=== PATIENT | female | born 1930 | race Caucasian/White ===

== ENCOUNTER → 2016-07-13 | Outpatient (REF) | payer MEDICARE ==
[~2016-07-13] MED LIST: /AMLO25TA OR; /ESOM40CA OR; /FAMO2TA PO; /FEXO18TA OR; /PANT40TA PO; /WARF25TA OR; /WARF25TA PO; /WARF3TA OR; ACET65TA OR; AVAP150T OR; FAMO20TA2 OR; FEXOFENADINE PO; GAS-80CH OR; GLUC500T3 OR; LASI40TA PO; LEVO25TA2 OR; LOPR50TA OR; MULTIVIT OR; NIAC500T OR; NITR0.4S SL; NORCOTAB PO; OMEGA 3 OR; PERC5TAB8 OR; PRIN5TAB OR; ROSU10TA OR; SIMV20TA2 OR; SINE25TA2 OR; STOOL SOFTENER OR; STOOL SOFTENER PO; TOPR25TA OR; TYLE325T5 PO; ULTR50TA PO; WARF2TAB44 PO; [UNRECOGNIZED DRUG - OTHER] PO; furosemide PO; m; magnesium oxide OR; pradaxa PO
[2016-07-13 17:45] LABS: VITAMIN B12 LEVEL 453 PG/ML (247-911)
[2016-07-13 18:00] LABS: TOTAL PROTEIN 7.6 GM/DL (6.4-8.2)
[2016-07-16 12:58] LABS: ALBUMIN 4.28 GM/DL (3.29-5.55); ALBUMIN % 56.3 % (55.8-66.1); GAMMA GLOBULIN % 16.6 % (11.1-18.8)
== END ==
LOC: M LAB REF 16:26
DX: G62.9 Polyneuropathy, unspecified (principal)

== ENCOUNTER → 2017-01-28 | Outpatient (CLI) | payer MEDICARE ==
[~2017-01-28] MED LIST changes: +BENA25CA4 PO; +CARB25TA PO; +COUM1TAB14 PO; +DULO1CAP2 PO; +FAMO1TAB11 PO; +FURO40TA2 PO; +GABA-282; +GABA-282 PO; +LEVO75TA34 PO; +METO1TAB32 PO; +NEXI20CA PO; +SIMV20TA2 PO; +STOO100C PO; +TYLE1TAB5 PO; +TYLE500T78 PO; +VITA500046 PO; +WARF4TAB51 PO
--- NOTE | 2017-01-28 14:59 | REP ---
Three-phase radionuclide bone scan of the pelvis and hips: The vascular phase of the study is bilaterally symmetric. On the oft tissue and skeletal phases of the study, there is focal increased uptake just distal to the intertrochanteric area and proximal shaft of the left femoral stem, asymmetric compared to the right, compatible with loosening. On the lateral views, there is no evidence of uptake in the sacrum. 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 There is no increased uptake in the sacrum. The study is performed with MDP labeled 21.6 mCi of technetium 99m. Signed by Toy Simpson MD 01/28/2017 02:51 P
== END ==
LOC: M RAD 10:55
PROVIDERS: ATTEND Physician Assistant
DX: M25.552 Pain in left hip (principal); T84.031A Mechanical loosening of internal left hip prosthetic joint, initial encounter; Z96.642 Presence of left artificial hip joint; Y83.1 Surgical operation with implant of artificial internal device as the cause of abnormal reaction of the patient, or of later complication, without mention of misadventure at the time of the procedure
CPT/HCPCS: 78315; A9503

== ENCOUNTER → 2017-02-20 | Outpatient (CLI) | payer MEDICARE ==
--- NOTE | 2017-02-20 11:44 | REP ---
LEFT ANKLE SERIES: Four views. HISTORY: Left ankle injury. FINDINGS: There is anterolateral periarticular swelling. Ankle mortise is intact. There is diffuse osteopenia. No fracture is seen. There is fragmented spurring at the Achilles tendon insertion on the posterior calcaneus with thickening of the distal Achilles tendon consistent with chronic Achilles tendinosis. This is more pronounced than on the comparison radiograph of the left foot from 2005. There is plantar calcaneal spurring as well. IMPRESSION: No fracture or subluxation is seen. Anterolateral swelling. Prominent distal Achilles tendonitis tendinosis with calcification and spurring. Signed by Ace Ramirez MD 02/20/2017 01:43 P
== END ==
LOC: M LRY 11:03
PROVIDERS: ATTEND Nurse Practitioner Family
DX: S99.912A Unspecified injury of left ankle, initial encounter (principal); M76.62 Achilles tendinitis, left leg; M25.472 Effusion, left ankle; M77.32 Calcaneal spur, left foot; M85.872 Other specified disorders of bone density and structure, left ankle and foot; X58.XXXA Exposure to other specified factors, initial encounter; Y92.9 Unspecified place or not applicable; Y93.9 Activity, unspecified; Y99.9 Unspecified external cause status
CPT/HCPCS: 29515; 73610; G0463

== ENCOUNTER 2017-03-04 14:36 | Inpatient (IN) | payer MEDICARE ==
[~2017-03-04] VITALS: Ht 154.9 cm; Wt 68.5 kg
[~2017-03-04 14:36] MED LIST changes: -BENA25CA4 PO; -CARB25TA PO; -COUM1TAB14 PO; -DULO1CAP2 PO; -FAMO1TAB11 PO; -FURO40TA2 PO; -GABA-282; -GABA-282 PO; -LEVO75TA34 PO; -METO1TAB32 PO; -NEXI20CA PO; -SIMV20TA2 PO; -STOO100C PO; -TYLE1TAB5 PO; -TYLE500T78 PO; -VITA500046 PO; -WARF4TAB51 PO
[2017-03-04] MEDS ORDERED: GABA-282 (14:53)
[2017-03-04] MEDS ORDERED: NS 1,000 ML IV SCH (16:00)
--- NOTE | 2017-03-04 16:21 | REP ---
Clinical: Syncope. Comparison: 10/16/2012 . Findings: Age-related atrophy and microvascular ischemic changes are appreciated. The ventricles and sulci are symmetric. Michel-white differentiation is maintained. There is no evidence for acute intracranial hemorrhage, mass/mass effect, pathology or infarction. No extra-axial fluid collection. Calvarium is intact. Paranasal sinuses and mastoid air cells are clear. Impression: Age related atrophy and microvascular ischemic changes. No acute intracranial hemorrhage, infarction, or mass/mass effect. Signed by Raheem Dyson MD 03/04/2017 04:12 P
--- NOTE | 2017-03-04 16:22 | REP ---
Clinical: Syncope . Comparison: 11/14/2016 . Findings: The mediastinum and cardiac silhouette are stable and again demonstrate stable cardiomegaly, sternotomy and evidence of prior CABG. The lung ortiz demonstrate chronic changes without acute consolidation, effusion, or pneumothorax. Skeletal structures are intact. Impression: No acute cardiopulmonary process appreciated. Signed by Raheem Dyson MD 03/04/2017 04:13 P
[2017-03-04 16:30] LABS: BASO % 0.5 % (0.0-1.0); EOS # 0.2 K/mm3 (0.0-0.50); EOS % 2.4 % (0.0-3.0); LARGE UNSTAINED CELL # 0.2 K/mm3 (0.0-0.4); LARGE UNSTAINED CELL % 2.1 % (0.0-4.0); LYMPH # 1.1 K/mm3 (1.5-4.5); LYMPH % 11.8 % (24.0-44.0); MEAN CORPUSCULAR HEMOGLOBIN 26.5 pg (27.0-33.0); MEAN CORPUSCULAR HGB CONC 29.6 g/dl (32.0-36.5); MEAN CORPUSCULAR VOLUME 89.6 fl (80.0-96.0); MONO # 0.6 K/mm3 (0.0-0.8); MONO % 7.3 % (0.0-5.0); NEUTROPHILS # 6.2 K/mm3 (1.8-7.7); NEUTROPHILS % 75.9 % (36.0-66.0); PLATELET COUNT, AUTOMATED 343 k/mm3 (150-450); RED CELL DISTRIBUTION WIDTH 16.2 % (11.5-14.5); WHITE BLOOD COUNT 8.2 K/mm3 (4.0-10.0)
[2017-03-04 16:39] LABS: INR 2.1
[2017-03-04 17:00] LABS: ANION GAP 3 MEQ/L (8-16); BLOOD UREA NITROGEN 17 MG/DL (7-18); CARBON DIOXIDE LEVEL 38 MEQ/L (21-32); CHLORIDE LEVEL 99 MEQ/L (98-107); CREATININE FOR GFR 0.81 MG/DL (0.55-1.02); GLOMERULAR FILTRATION RATE > 60.0 (>32); GLUCOSE, FASTING 117 MG/DL (83-110); POTASSIUM SERUM 3.2 MEQ/L (3.5-5.1); SODIUM LEVEL 140 MEQ/L (136-145)
[2017-03-04] MEDS ORDERED: POTASSIUM CHLORIDE 10 MEQ SR TABLET PO ONE (17:15)
[2017-03-04] MEDS ORDERED: FUROSEMIDE 40 MG/4 ML VIAL (J1940) IV ONE (17:15)
[2017-03-04] MEDS ORDERED: ONDANSETRON 4MG/2ML VIAL (J2405) IV PRN (18:45)
[2017-03-04] MEDS ORDERED: ACETAMINOPHEN TAB 650MG DOSE (2X325MG) PO PRN (18:45)
[2017-03-04] MEDS ORDERED: DULO1CAP2 PO (18:55)
[2017-03-04] MEDS ORDERED: GABA-282 PO (18:55)
[2017-03-04] MEDS ORDERED: TYLE1TAB5 PO (18:55)
[2017-03-04] MEDS ORDERED: LEVO75TA34 PO (18:55)
[2017-03-04] MEDS ORDERED: NEXI20CA PO (18:55)
[2017-03-04] MEDS ORDERED: STOO100C PO (18:55)
[2017-03-04] MEDS ORDERED: CARB25TA PO (18:55)
[2017-03-04] MEDS ORDERED: BENA25CA4 PO (18:55)
[2017-03-04] MEDS ORDERED: WARF4TAB51 PO (18:55)
[2017-03-04] MEDS ORDERED: VITA500046 PO (18:55)
[2017-03-04] MEDS ORDERED: FURO40TA2 PO (18:55)
[2017-03-04] MEDS ORDERED: FAMO1TAB11 PO (18:55)
[2017-03-04] MEDS ORDERED: METO1TAB32 PO (18:55)
[2017-03-04] MEDS ORDERED: TYLE500T78 PO (18:55)
[2017-03-04] MEDS ORDERED: SIMV20TA2 PO (18:55)
[2017-03-04 19:21] LABS: METHADONE URINE NEGATIVE (NEGATIVE)
--- NOTE | 2017-03-04 19:35 | HPEPDOC ---
General Date of Admission 03/04/17 Primary Care Physician: Imelda Morelos Attending Physician: ROB RUDD MD Chief Complaint The patient is a 86-year-old female admitted with a reason for visit of SOB. History of Present Illness 86-year-old female with past medical history of atrial fibrillation on Coumadin , hypothyroidism, GERD, dyslipidemia, Parkinson's disease, and ? History of congestive heart failure presented to the ER with a chief complaint of increased shortness of breath and a weight gain of 10 pounds in the last 5 days. The patient states that she has been feeling increasingly short of breath at rest and on exertion, and this has been accompanied by gaining 10 pounds of weight. She denies any lower extremity swelling, PND, or orthopnea. She also denies any fever, chills, productive cough, chest pain, palpitations, abdominal pain, or any nausea/vomiting/diarrhea. In addition, the patient has noted that she has been feeling increasingly lightheaded/dizzy with episodes of syncope over the last few days as well. She denies any prodromal symptoms of chest pain , palpitations, or shortness of breath. In the ER, the patient's physical exam (bibasilar crackles on auscultation, +JVD ) is consistent with decompensated congestive heart failure. A BNP level was noted to be 1500. EKG revealed T-wave inversions in V1-V4, which were new compared to the last EKG tracing we have from 2012. Initial troponin is within normal limits. The patient will be admitted to the hospitalist service for IV diuretics and further management. Home Medications Scheduled (Tylenol Pm Extra Strength 500-25 mg) 1 Tab Tab, 2 TAB PO QHS, (Reported) Acetaminophen (Tylenol Extra Strength) 500 Mg Tab, 1,000 MG PO DAILY, (Reported) Carbidopa/Levodopa (Carbidopa/Levodopa 25-100 mg) 1 Tab Tab, 2 TAB PO BID, ( Reported) Cholecalciferol (Vitamin D) 5,000 Unit Tab, 5,000 UNIT PO QHS, (Reported) Diphenhydramine HCl (Benadryl Allergy) 25 Mg Cap, 25 MG PO QHS, (Reported) Docusate Sodium (Stool Softener) 100 Mg Cap, 100 MG PO QHS, (Reported) HOLD FOR LOOSE STOOLS Duloxetine Hcl (Duloxetine HCl) 30 Mg Cap, 30 MG PO DAILY, (Reported) Esomeprazole Magnesium Trihydr (Nexium) 20 Mg Cap, 40 MG PO DAILY, (Reported) Famotidine (Famotidine) 20 Mg Tab, 20 MG PO DAILY, (Reported) Furosemide (Furosemide) 40 Mg Tab, 40 MG PO DAILY, (Reported) Gabapentin (Gabapentin) 300 Mg Cap, 900 MG PO QHS, (Reported) Levothyroxine Sodium (Levoxyl) 75 Mcg Tab, 75 MCG PO DAILY, (Reported) Metoprolol Succinate (Metoprolol Succinate ER) 25 Mg Tab, 25 MG PO QHS, ( Reported) Simvastatin (Simvastatin) 20 Mg Tab, 20 MG PO QHS, (Reported) Warfarin Sod (Warfarin Sodium) 2 Mg Tab, 2 MG PO QHS, (Reported) Allergies Coded Allergies: Aspirin (Verified Adverse Reaction, Intermediate, CAUSES ULCERS, 09/23/12) Past Medical History Medical History As noted in HPI. Surgical History CABG 3 in 1997. Bilateral hip replacement 2012 and 2014 Family History Significant Family History: No pertinent family hx Social History * Smoker: former Smoker (smoked pack a day for 50 years, quit 20 years ago) Alcohol: Denies Drugs: denies Review of Symptoms Other systems 10 point review of systems negative unless otherwise specified in HPI. Physical Examination General Exam: Positive: Alert, Cooperative, No Acute Distress ENT Exam: Positive: Atraumatic, Mucous membr. moist/pink Neck Exam: Positive: JVD Chest Exam: Positive: Rales (bibasilar rales noted on auscultation) Heart Exam: Positive: Irregular Rhythm, Normal S1, Normal S2 Telemetry: Positive: Atrial fibrillation Abdomen Exam: Positive: Soft, Negative: Tenderness Extremity Exam: Negative: Tenderness, Swelling Psych Exam: Positive: Oriented x 3 Vital Signs Vital Signs Date Time Temp Pulse Resp B/P (MAP) Pulse Ox O2 Delivery O2 Flow Rate FiO2 03/04/17 19:02 20 177/87 (117) Room Air 03/04/17 18:56 84 97 03/04/17 14:36 98.6 2.5 Laboratory Data Labs 24H Laboratory Tests 2 03/04/17 16:19: White Blood Count 8.2, Red Blood Count 3.90L, Hemoglobin 10.3L, Hematocrit 34.9L , Mean Corpuscular Volume 89.6, Mean Corpuscular Hemoglobin 26.5L, Mean Corpuscular Hemoglobin Concent 29.6L, Red Cell Distribution Width 16.2H, Platelet Count 343, Neutrophils (%) (Auto) 75.9H, Lymphocytes (%) (Auto) 11.8L, Monocytes (%) (Auto) 7.3H, Eosinophils (%) (Auto) 2.4, Basophils (%) (Auto) 0.5 , Neutrophils # (Auto) 6.2, Lymphocytes # (Auto) 1.1L, Monocytes # (Auto) 0.6, Eosinophils # (Auto) 0.2, Basophils # (Auto) 0.0, Large Unclassified Cells % 2.1 , Large Unclassified Cells # 0.2, Prothrombin Time 24.3H, Prothromb Time International Ratio 2.10, Anion Gap 3L, Glomerular Filtration Rate > 60.0, Blood Urea Nitrogen 17, Creatinine 0.81, Sodium Level 140, Potassium Level 3.2L , Chloride Level 99, Carbon Dioxide Level 38H, Calcium Level 9.0, Total Creatine Kinase 51, Magnesium Level 2.0, Creatine Kinase MB 1.6, Creatine Kinase MB Relative Index 3.13, Troponin I 0.03, B-Type Natriuretic Peptide 1520H , Thyroid Stimulating Hormone (TSH) 1.930, Ethyl Alcohol Level < 0.003 03/04/17 18:51: Urine Appearance CLEAR, Urine Color YELLOW, Urine pH 6.0, Urine Specific [place] 1.006, Urine Protein NEGATIVE, Urine Glucose (UA) NEGATIVE, Urine Ketones NEGATIVE, Urine Urobilinogen 0.2, Urine Bilirubin NEGATIVE, Urine Leukocyte Esterase 2+H, Urine Blood NEGATIVE, Urine Nitrite NEGATIVE, Urine WBC (Auto) 17H, Urine RBC (Auto) 4H, Urine Hyaline Casts (Auto) 3, Urine Bacteria ( Auto) 1+H, Urine Squamous Epithelial Cells 0, Urine Mucus (Auto) SMALL, Urine Sperm (Auto) , Urine Amphetamines Screen NEGATIVE, Urine Benzodiazepines Screen NEGATIVE, Urine Opiates Screen NEGATIVE, Urine Methadone Screen NEGATIVE, Urine Barbiturates Screen NEGATIVE, Urine Phencyclidine Screen NEGATIVE, Urine Cocaine Metabolite Screen NEGATIVE, Urine Cannabinoids Screen NEGATIVE CBC/BMP Laboratory Tests 03/04/17 16:19 Red Blood Count 3.90 L, Mean Corpuscular Volume 89.6, Mean Corpuscular Hemoglobin 26.5 L, Mean Corpuscular Hemoglobin Concent 29.6 L, Red Cell Distribution Width 16.2 H, Neutrophils (%) (Auto) 75.9 H, Lymphocytes (%) (Auto ) 11.8 L, Monocytes (%) (Auto) 7.3 H, Eosinophils (%) (Auto) 2.4, Basophils (%) (Auto) 0.5, Neutrophils # (Auto) 6.2, Lymphocytes # (Auto) 1.1 L, Monocytes # ( Auto) 0.6, Eosinophils # (Auto) 0.2, Basophils # (Auto) 0.0, Calcium Level 9.0, Total Creatine Kinase 51 Microbiology Microbiology 03/04/17 Urine Culture, Received Pending Plan / VTE VTE Prophylaxis Ordered?: Yes Plan Plan Decompensated congestive heart failure We will admit the patient to the progressive care unit IV diuretics have been ordered, and we will titrate this dose based on blood pressure tolerability Monitor I's and O's Fluid restriction 2-D echocardiogram has been ordered to evaluate the patient's systolic and diastolic function EKG notable for T-wave inversions in V1-V4 which is changed from 2013 reading We will serially trend troponins We will continue to monitor the patient's fluid status Discussed the case with Dr. Nobles--Cardiology consulted Orthostatic Hypotension, Syncopal Episodes Possibly 2/2 underlying Cardiac Dysfunction--2D ECHO ordered Also may be attributable to the patient's underlying Parkinson's disease, autonomic neuropathy We will monitor the patient on telemetry Atrial Fibrillation, stable HR controlled--continue metoprolol INR therapeutic Cont coumadin Hypothyroidism Continue levothyroxine GERD Continue Pepcid, PPI Dyslipidemia Continue statin Parkinson's disease Continue carbidopa/levodopa Anxiety/depression Continue duloxetine Peripheral neuropathy Continue gabapentin, duloxetine DVT prophylaxis Already on Coumadin The patient will be admitted to the service of Dr. Rudd, who will begin to follow the patient on 03/05/17 at 7 AM. ANDERSON GARCIA MD Mar 04, 2017 19:35
[2017-03-04] MEDS ORDERED: METOPROLOL SUCC *XL* 25MG TAB (TopROL *XL*) PO SCH (21:00)
[2017-03-04 21:37] VITALS: BP 160/88
[2017-03-04] MEDS: WARFARIN SOD 2 MG TAB PO SCH (21:50)
[2017-03-04] MEDS: DOCUSATE SODIUM 100 MG CAP PO SCH (21:50)
[2017-03-04] MEDS: diphenhydrAMINE 25 MG CAP PO SCH (21:50)
[2017-03-04 21:51] VITALS: BP 163/74
[2017-03-04] MEDS: SIMVASTATIN 20 MG TAB PO SCH (21:51)
[2017-03-04] MEDS: VITAMIN D 1,000 INTERNATIONAL UNITS TABLET PO SCH (21:51)
[2017-03-04] MEDS: GABAPENTIN 300 MG CAP PO SCH (21:51)
[2017-03-04] MEDS: SINEMET 25-100 MG TAB PO SCH (21:51)
[2017-03-05 00:43] LABS: ANION GAP 4 MEQ/L (8-16); BLOOD UREA NITROGEN 16 MG/DL (7-18); CALCIUM LEVEL 8.7 MG/DL (8.8-10.2); CARBON DIOXIDE LEVEL 37 MEQ/L (21-32); CHLORIDE LEVEL 100 MEQ/L (98-107); CREATININE FOR GFR 0.86 MG/DL (0.55-1.02); GLOMERULAR FILTRATION RATE > 60.0 (>32); GLUCOSE, FASTING 121 MG/DL (83-110); POTASSIUM SERUM 3.3 MEQ/L (3.5-5.1); SODIUM LEVEL 141 MEQ/L (136-145)
[2017-03-05] MEDS ORDERED: POTASSIUM CHLORIDE 10 MEQ SR TABLET PO ONE ×2 (01:15→08:00)
[2017-03-05 03:18] VITALS: BP 119/65
[2017-03-05] MEDS: LEVOTHYROXINE 75MCG TABLET (0.075MG) PO SCH (05:20)
[2017-03-05 05:34] LABS: MEAN CORPUSCULAR HEMOGLOBIN 26.3 pg (27.0-33.0); MEAN CORPUSCULAR HGB CONC 29.5 g/dl (32.0-36.5); RED CELL DISTRIBUTION WIDTH 16.2 % (11.5-14.5); WHITE BLOOD COUNT 7.7 K/mm3 (4.0-10.0)
[2017-03-05 05:53] LABS: ALBUMIN 3.1 GM/DL (3.2-5.2); ALBUMIN/GLOBULIN RATIO 0.79 (1.00-1.93); ALKALINE PHOSPHATASE 104 U/L (45-117); ALT/SGPT 10 U/L (12-78); ANION GAP 4 MEQ/L (8-16); AST/SGOT 19 U/L (15-37); BLOOD UREA NITROGEN 16 MG/DL (7-18); CALCIUM LEVEL 9.1 MG/DL (8.8-10.2); CARBON DIOXIDE LEVEL 37 MEQ/L (21-32); CHLORIDE LEVEL 100 MEQ/L (98-107); GLOMERULAR FILTRATION RATE > 60.0 (>32); GLUCOSE, FASTING 113 MG/DL (83-110); MAGNESIUM LEVEL 1.8 MG/DL (1.8-2.4); POTASSIUM SERUM 3.7 MEQ/L (3.5-5.1); SODIUM LEVEL 141 MEQ/L (136-145)
--- NOTE | 2017-03-05 06:01 | ECGEPIP ---
Stationary ECG Study [facility] - ED Test Date: 2017-03-04 Pat Name: TAMI PERERA Department: Room: [place] [address] Gender: F Crane Hooker: rajan : 1930 Requested By: AUGUSTO CANTU Order Number: [id number] Reading MD: Robert Lehman Measurements Intervals [place] Rate: 79 P: IN: 0 QRS: 11 QRSD: 97 T: -51 QT: 400 QTc: 459 Interpretive Statements ATRIAL FIBRILLATION ST DEVIATION AND MODERATE T-WAVE ABNORMALITY, CONSIDER ANTERIOR ISCHEMIA Electronically Signed On 03-05-2017 6:00:43 EDT by Robert Lehman
[2017-03-05 08:56] VITALS: BP_SYST 136; BP_SYST 143; BP_DIAS 71; BP_DIAS 73; BP_DIAS 77
[2017-03-05] MEDS: FAMOTIDINE 20 MG TAB PO SCH (09:14)
[2017-03-05] MEDS: PANTOPRAZOLE 40MG TAB (PROTONIX) PO SCH (09:14)
[2017-03-05] MEDS: SINEMET 25-100 MG TAB PO SCH ×2 (09:14→21:05)
[2017-03-05] MEDS: DULoxetine 30 MG CAP (CYMBALTA) PO SCH (09:14)
--- NOTE | 2017-03-05 09:14 | ECGEPIP ---
Stationary ECG Study [facility] Test Date: 2017-03-05 Pat Name: TAMI PERERA Department: Room: [place] [address] Gender: F Dialysis Tech: : 1930 Requested By: BENJA GRIMES Order Number: [id number] Reading MD: Kei Arteaga Measurements Intervals [place] Rate: 78 P: IN: 0 QRS: 28 QRSD: 83 T: -53 QT: 406 QTc: 462 Interpretive Statements ATRIAL FIBRILLATION solitary ventricular beat borderline prolonged QTc POSSIBLE RIGHT VENTRICULAR CONDUCTION DELAY NONSPECIFIC ST & T-WAVE ABNORMALITY Similar to tracing done 03-04-17 Electronically Signed On 03-05-2017 9:13:49 EDT by Kei Arteaga
[2017-03-05] MEDS: FUROSEMIDE 40 MG/4 ML VIAL (J1940) IV SCH ×2 (09:15→16:30)
[2017-03-05 09:45] LABS: INR 2.06
[2017-03-05 12:00] VITALS: BP 122/60
--- NOTE | 2017-03-05 15:47 | IPNPDOC ---
Text Note Date of Service The patient was seen on 03/05/17. NOTE Subjective: Patient is an 86 year old female with a PMHx of Atrial fibrillation ( on coumadin), Hypothyroidism, DLP, Possible Parkinson's disease / RLS, ?CHF, and GERD who presented to the ER with complains of shortness of breath and increasing weight of 10 lbs in 5 days. On arrival to the ER, patient was found to have crackles on lung auscultation and JVD consistent with CHF exacerbation, as well as an elevated BNP of 1500s Patient was seen and examined at the bedside. She notes mild improvement in her breathing. Objective: Vitals (See below) General: Lying in bed, no acute distress, comfortable, AAOx3 HEENT: NC, AT CVS: IrIr, +S1S2 Lungs: Fair air entry b/l, mild crackles bilaterally Abdomen: Soft, ND, NT Extremities: +- Edema, - Calf tenderness Assessment and plan: Acute decompensated CHF - Presented with worsening shortness of breath - Physical reveals some signs of fluid overload - Elevated BNP - CXR 03/04: No acute cardiopulmonary process appreciated - ECHO pending - c/w Furosemide 40 IV BID - c/w Strict ins/outs, daily weights, head of bed elevation EKG changes, possible ischemia - no complaints of chest pain - T-wave inversions in leads V1-V4 - Troponin x3 sets negative - Follows with Dr. Nobles Bradycardia - epiosdoes of bradycardia at night with some symptoms (ie. Presyncope) - c/w telemetry monitoring - BB continued for atrial fibrillation, will continue to evaluate for bradycardia Orthostatic hypotension, possibly 2/2 autonomic dysfunction 2/2 Parkinson's disease - c/w orthostatic vital sign checks Atrial fibrillation - INR therapeutic, 2.06 - rate controlled with metoprolol - c/w Coumadin for anticoagulation Hypothyroidism - c/w Levothyroxine GERD - c/w Protonix and Famotidine DLP - c/w Simvastatin Parkinson's disease - Patient notes that she does not have a history of Parkinson's - Leveopda / Carbidopa continued for RLS - c/w Levodopa / Carbidopa Anxiety / Depression - c/w Duloxetine Peripheral neuropathy - c/w Gabapentin DVT prophylaxis - c/w Coumadin VS,Fishbone, I+O VS, Fishbone, I+O Laboratory Tests 03/04/17 16:19 Red Blood Count 3.90 L, Mean Corpuscular Volume 89.6, Mean Corpuscular Hemoglobin 26.5 L, Mean Corpuscular Hemoglobin Concent 29.6 L, Red Cell Distribution Width 16.2 H, Neutrophils (%) (Auto) 75.9 H, Lymphocytes (%) (Auto ) 11.8 L, Monocytes (%) (Auto) 7.3 H, Eosinophils (%) (Auto) 2.4, Basophils (%) (Auto) 0.5, Neutrophils # (Auto) 6.2, Lymphocytes # (Auto) 1.1 L, Monocytes # ( Auto) 0.6, Eosinophils # (Auto) 0.2, Basophils # (Auto) 0.0, Calcium Level 9.0, Total Creatine Kinase 51 03/05/17 00:09 Calcium Level 8.7 L, Total Creatine Kinase 49 03/05/17 05:15 Red Blood Count 3.82 L, Mean Corpuscular Volume 89.0, Mean Corpuscular Hemoglobin 26.3 L, Mean Corpuscular Hemoglobin Concent 29.5 L, Red Cell Distribution Width 16.2 H, Calcium Level 9.1, Aspartate Amino Transf (AST/SGOT) 19, Alanine Aminotransferase (ALT/SGPT) 10 L, Alkaline Phosphatase 104, Total Bilirubin 1.0, Total Protein 7.0, Albumin 3.1 L Vital Signs Date Time Temp Pulse Resp B/P (MAP) Pulse Ox O2 Delivery O2 Flow Rate FiO2 03/05/17 12:00 98.2 78 18 122/60 (80) 95 Nasal Cannula 3.0 I&O- Last 24 Hours up to 6 AM 03/05/17 06:00 Intake Total 650 ml Output Total 800 ml Balance -150 ml ROB LEDESMA MD Mar 05, 2017 15:47
[2017-03-05 16:00] VITALS: BP_SYST 119; BP_SYST 127; BP_SYST 138; BP_DIAS 61; BP_DIAS 73; BP_DIAS 88
--- NOTE | 2017-03-05 19:00 | CR ---
DATE OF CONSULTATION: 03/05/2017 REFERRING PHYSICIAN: Dr. Rudd INDICATION: Syncope and congestive heart failure. HISTORY OF PRESENT ILLNESS: Mrs. Vargas is previously unknown to me. She is a very pleasant, actually delightful, 86-year-old female who has a remote history of coronary artery bypass surgery in 1997. She remains remarkably active for her age in spite of her advanced age, chronic atrial fibrillation and coronary artery disease. She said that for the most part she is doing well with only mild exertional dyspnea until last approximately 2-3 weeks when she started have episodes of dizziness and near / syncope. She reports 5-6 episodes when she actually fell to the ground. It appears that some of them were actually just tripping but on few occasions she had typical warning symptoms with dizziness and nausea and diaphoresis and then briefly lost consciousness. Every single episode occurred shortly after she stood up and sometimes she made few steps. The symptoms are completely new to her. She believes that they were quite aggravated by her being started on metoprolol by her primary care physician, she believes approximately 4 weeks ago and she actually discontinued the medication on her own approximately a week ago. In spite of which she had yet another episode of near syncope. She also reports that lately she has been more short of breath than usual but does not think that it was dramatic. She denies any chest discomfort as such. PAST MEDICAL HISTORY: 1. Coronary artery disease as above. She had a bypass surgery in 1997. She had a nuclear stress test in our office in 2013 that demonstrated normal perfusion and normal left ventricular systolic function. 2. Chronic atrial fibrillation that has been managed by primary care physician. She has been spontaneously rate controlled and anticoagulated. 3. History of hypertension. 4. Dyslipidemia. 5. Chronic pain. 6. Hypothyroidism. 7. History of peptic ulcer disease. 8. History of restless leg syndrome for which she was prescribed Sinemet she believes several months ago. SURGICAL HISTORY: Positive for CABG and bilateral hip replacements. OUTPATIENT MEDICATIONS: Sinemet 2 tablets twice a day, vitamin D, Colace 100 at night, duloxetine 30 a day, Nexium 40 a day, famotidine 20 a day, furosemide 40 a day, gabapentin 300 nightly, levothyroxine 75 a day, metoprolol succinate 25 a day was discontinued about 1 week prior to admission, simvastatin and warfarin. She reports intolerance of aspirin. In the past she had peptic ulcer disease, believed to be related. FAMILY HISTORY: No longer significant. SOCIAL HISTORY: The patient is a . She used to smoke but quit many years ago. She lives on her own but her son lives just next door and she see him and his family of virtually every day. She does not drink alcohol. On the review of systems she denies any recent fever, chills, nausea or vomiting or diarrhea. She has had no history of CVA. No recent chest discomfort. No sensation of palpitations. No PND, orthopnea. No abdominal pain. No peripheral edema other than mild edema of lately. PHYSICAL EXAMINATION: Mrs. Vargas is an 86-year-old female that is comfortable. She lays completely in horizontal position. Blood pressure 120/60, heart rate has been mostly 70s and 80s atrial fibrillation. She is afebrile. Saturation is in mid 90s on 3 liters oxygen by nasal cannula. She had several sets of orthostatic measurements that have been negative. Weight is documented as 72.3 kg. Her JVP is about 5-6 cm. Lungs reveal fine end inspiratory crackles bilaterally. I do not appreciate any dullness to percussion. Heart: Exam reveals irregularly irregular rhythm. I would do not appreciate fabien gallop, murmur or rub. Abdomen is mildly obese but soft and nontender. No hepatosplenomegaly is appreciated. There is trace peripheral edema. Peripheral pulses are palpable. Neurologically she is alert and oriented and appropriate. Surprisingly sharp for her age. LABORATORY: Basic metabolic panel this morning is normal, liver function tests are also normal, three sets of cardiac enzymes have been normal. Her admission BNP is elevated 15 20, albumin 3.0 and INR 2.0. Urine tox screen has been negative. Chest x-ray reveals cardiomegaly, prior sternotomy, and aortic valve replacement and possibly small pleural effusion. The CT of the head was interpreted as corresponding age-related atrophy but no hemorrhage and no obvious stroke. Electrocardiogram reveals presence of atrial fibrillation with controlled rate and subtle precordial T-wave inversions from V1 to V6 also shallow T-wave inversion inferiorly. These findings are rather nonspecific. An echocardiogram is pending. ASSESSMENT/PLAN: Mrs. Vargas is an 86-year-old delightful female who has a history of ischemic heart disease with remote history of bypass surgery and presents with several near and syncopal events. Based on the description it sounds decidedly orthostatic but her orthostatic vital signs have been negative. So far the monitoring on telemetry demonstrates only rate-controlled atrial fibrillation. I suspect that the metoprolol that was recently discontinued was probably contributing. I also suspect that some of her additional medications that are centrally active may be contributing to contributing to her symptomatology. I would have a low threshold to discontinue the Sinemet and possibly Cymbalta and gabapentin depending on her clinical condition. Nevertheless, I would recommend to continue monitoring the patient on telemetry for at least a total of 72 hours to make sure that she does not have any luz arrhythmias. Last night she had one episode of near syncope walking to the bathroom and there was a drop in her heart rate but only to 50s which is unlikely to have been a culprit. The second issue is that of congestive heart failure. She is clearly volume overloaded as evidenced by high BNP. She has nonspecific repolarization abnormalities on EKG. The echocardiogram was already requested. I agree with ongoing diuresis. Otherwise she has been chronically anticoagulated, which should be continued. She is on lipid lowering medications. I will keep following the patient with you. CAREY
[2017-03-05 20:00] VITALS: BP 126/60
[2017-03-05] MEDS: GABAPENTIN 300 MG CAP PO SCH (21:04)
[2017-03-05] MEDS: WARFARIN SOD 2 MG TAB PO SCH (21:04)
[2017-03-05] MEDS: diphenhydrAMINE 25 MG CAP PO SCH (21:04)
[2017-03-05] MEDS: VITAMIN D 1,000 INTERNATIONAL UNITS TABLET PO SCH (21:05)
[2017-03-05] MEDS: SIMVASTATIN 20 MG TAB PO SCH (21:05)
[2017-03-05] MEDS: DOCUSATE SODIUM 100 MG CAP PO SCH (21:08)
[2017-03-06 04:00] VITALS: BP_SYST 128; BP_SYST 133; BP_SYST 135; BP_DIAS 60; BP_DIAS 65; BP_DIAS 73
[2017-03-06] MEDS: LEVOTHYROXINE 75MCG TABLET (0.075MG) PO SCH (05:16)
[2017-03-06 05:52] LABS: INR 1.83; MEAN CORPUSCULAR HEMOGLOBIN 26.6 pg (27.0-33.0); MEAN CORPUSCULAR VOLUME 88.6 fl (80.0-96.0); RED CELL DISTRIBUTION WIDTH 16.4 % (11.5-14.5); WHITE BLOOD COUNT 7.6 K/mm3 (4.0-10.0)
[2017-03-06 06:06] LABS: ALBUMIN 3.1 GM/DL (3.2-5.2); ALBUMIN/GLOBULIN RATIO 0.74 (1.00-1.93); ALKALINE PHOSPHATASE 119 U/L (45-117); ALT/SGPT 9 U/L (12-78); ANION GAP 7 MEQ/L (8-16); AST/SGOT 18 U/L (15-37); BILIRUBIN,TOTAL 0.9 MG/DL (0.2-1.0); BLOOD UREA NITROGEN 21 MG/DL (7-18); CALCIUM LEVEL 9.7 MG/DL (8.8-10.2); CARBON DIOXIDE LEVEL 36 MEQ/L (21-32); CHLORIDE LEVEL 100 MEQ/L (98-107); CREATININE FOR GFR 0.68 MG/DL (0.55-1.02); GLOMERULAR FILTRATION RATE > 60.0 (>32); GLUCOSE, FASTING 94 MG/DL (83-110); MAGNESIUM LEVEL 1.8 MG/DL (1.8-2.4); POTASSIUM SERUM 3.5 MEQ/L (3.5-5.1); SODIUM LEVEL 143 MEQ/L (136-145); TOTAL PROTEIN 7.3 GM/DL (6.4-8.2)
[2017-03-06 08:00] VITALS: BP 163/90
--- NOTE | 2017-03-06 08:18 | IPN ---
DATE: 03/06/2017 Mrs. Vargas had relatively uneventful day yesterday. She did not have any near/syncopal events. But she was not able to ambulate very well due to weakness. She still tells me that she was feeling somewhat dizzy during the ambulation. Denies significant dyspnea. Again slept completely flat. Did not have any paroxysmal nocturnal dyspnea (PND). Denies any chest pain. Vital signs: Blood pressure 135/60. Orthostatics signs were negative. Heart rate is mostly in 80s and 90s, atrial fibrillation. She is afebrile. Saturation 93% on 3 liters of oxygen by nasal cannula. Fluid balance yesterday was about 150 negative, very slightly. Weight is documented 70.7. She is alert and oriented and appropriate. Her jugular venous pulse (JVP) is not markedly elevated, only maybe 2 or 3 cm above clavicle. Lungs still reveals somewhat diminished breath sounds over bases and occasional crackle. Heart exam irregularly irregular rhythm. No gallop is noted. Abdomen is soft. There is no edema. Neurologically, she is intact. Laboratory monsalve: Basic metabolic panel is normal. Normal liver function tests. Magnesium is 1.8. CBC: Hemoglobin 10, hematocrit 34.4, platelet count is 325. INR is 1.8 ASSESSMENT: 86-year-old female who has a longstanding history of atrial fibrillation with controlled rate who presented with several near syncopal events. By a history it sounds orthostatic, but so far her orthostatic signs have been negative. It is possible that the beta-yazmin that she was on and discontinued shortly prior to admission may have played some etiologic roll. Nevertheless, so far, we have not been able to demonstrate any arrhythmias to explain her symptoms. I still would advocate to discontinue some more centrally acting medications if only possible. Otherwise, the management of heart failure is unchanged. She seems to be reasonably improved and I am still waiting for the result of the echocardiogram that was performed last night.
[2017-03-06] MEDS: FUROSEMIDE 40 MG/4 ML VIAL (J1940) IV SCH ×2 (08:20→16:07)
[2017-03-06] MEDS: PANTOPRAZOLE 40MG TAB (PROTONIX) PO SCH (08:20)
[2017-03-06] MEDS: SINEMET 25-100 MG TAB PO SCH ×2 (08:20→20:26)
[2017-03-06] MEDS: FAMOTIDINE 20 MG TAB PO SCH (08:20)
[2017-03-06] MEDS: DULoxetine 30 MG CAP (CYMBALTA) PO SCH (08:20)
--- NOTE | 2017-03-06 08:48 | ECHO ---
DATE OF PROCEDURE: 03/05/2017 REFERRING PHYSICIAN: Dr. Laguna and Dr. Rudd. INDICATION: Congestive heart failure. HEIGHT: 155 cm. WEIGHT: 72 kg. DIMENSIONS: IVS: 1.2 LV: 4.5 LVPW: 1.0 LA: 4.2 Aorta: 3.2 FINDINGS: Study is of acceptable technical quality. The patient is in atrial fibrillation with controlled rate. Left ventricle is of normal size and normal contractility. There is a septal wall motion abnormality consistent with right ventricle volume and pressure overload. I do estimate overall ejection fraction (EF) around 60%. Right ventricle is severely dilated and hypokinetic. Both atria are severely enlarged, right more than left. Aortic valve is sclerotic. It has three cusps and grossly preserved mobility. There are also degenerative abnormalities of mitral valve with mitral annular calcifications. Tricuspid valve appears normal. Pulmonic valve was not visualized. No pericardial effusion is noted. Inferior vena cava is dilated and has no appreciable collapse with respiration indicative of likely very high central venous pressure. Aortic root is normal. Aortic arch and abdominal aorta were not well seen. Doppler interrogation reveals no significant aortic disease. There is mild mitral insufficiency and probably moderate tricuspid insufficiency. Calculated pulmonary artery pressure is at least in low 70s, which would correspond to severe pulmonary hypertension. Evaluation of diastolic function is inconclusive due to underlying atrial fibrillation but there is very brief deceleration time on mitral inflow indicative of likely very high LVEDP. CONCLUSIONS: 1. Study is of acceptable technical quality. 2. Normal LV size with preserved LV systolic function and likely advanced diastolic dysfunction. 3. Dilated hypokinetic right ventricle. 4. Severe biatrial enlargement. 5. Severe pulmonary hypertension. 6. Very high central venous pressure. 7. Moderate tricuspid insufficiency. COMMENT: Subacute bacterial endocarditis (SBE) prophylaxis is not recommended. Study is most consistent with likely diastolic congestive heart failure and secondary pulmonary hypertension.
[2017-03-06 12:00] VITALS: BP_SYST 117; BP_SYST 123; BP_SYST 131; BP_DIAS 56; BP_DIAS 67; BP_DIAS 74
--- NOTE | 2017-03-06 13:50 | IPNPDOC ---
Text Note Date of Service The patient was seen on 03/06/17. NOTE Subjective: Patient is an 86 year old female with a PMHx of Atrial fibrillation ( on coumadin), Hypothyroidism, DLP, Possible Parkinson's disease / RLS, ?CHF, and GERD who presented to the ER with complains of shortness of breath and increasing weight of 10 lbs in 5 days. On arrival to the ER, patient was found to have crackles on lung auscultation and JVD consistent with CHF exacerbation, as well as an elevated BNP of 1500s Patient was seen and examined at the bedside. She notes that her breathing is doing slightly better than yesterday. She denies any other complaints. She has been noted to have an episode of bradycardia and had near syncope 1 night prior. Objective: Vitals (See below) General: Lying in bed, no acute distress, comfortable, AAOx3 HEENT: NC, AT CVS: IrIr, +S1S2 Lungs: Fair air entry b/l, mild crackles bilaterally Abdomen: Soft, ND, NT Extremities: +- Edema, - Calf tenderness Assessment and plan: Acute decompensated CHF - Presented with worsening shortness of breath - Physical reveals some signs of fluid overload - Elevated BNP - CXR 03/04: No acute cardiopulmonary process appreciated - ECHO complete; report pending - c/w Furosemide 40 IV BID - c/w Strict ins/outs, daily weights, head of bed elevation EKG changes, possible ischemia - no complaints of chest pain - T-wave inversions in leads V1-V4 - Troponin x3 sets negative - Follows with Dr. Nobles Bradycardia - episodes of bradycardia at night with some symptoms (ie. Presyncope) - c/w telemetry monitoring - BB continued for atrial fibrillation, will continue to evaluate for bradycardia Orthostatic hypotension, possibly 2/2 autonomic dysfunction 2/2 Parkinson's disease, possibly 2/2 medications - Patient denies the history of Parkinson's, reports medications was started for RLS - Will decrease dose of carbidopa / levodopa - c/w orthostatic vital sign checks Atrial fibrillation - INR therapeutic, 1.83 - rate controlled with metoprolol - c/w Coumadin for anticoagulation, will increase dose Hypothyroidism - c/w Levothyroxine GERD - c/w Protonix and Famotidine DLP - c/w Simvastatin Parkinson's disease - Patient notes that she does not have a history of Parkinson's - Leveopda / Carbidopa continued for possible RLS - Reduced dose of Levodopa / Carbidopa Anxiety / Depression - c/w Duloxetine Peripheral neuropathy - Will reduced dose of Gabapentin DVT prophylaxis - c/w Coumadin VS,Fishbone, I+O VS, Fishbone, I+O Laboratory Tests 03/06/17 05:28 Red Blood Count 3.88 L, Mean Corpuscular Volume 88.6, Mean Corpuscular Hemoglobin 26.6 L, Mean Corpuscular Hemoglobin Concent 30.0 L, Red Cell Distribution Width 16.4 H, Calcium Level 9.7, Aspartate Amino Transf (AST/SGOT) 18, Alanine Aminotransferase (ALT/SGPT) 9 L, Alkaline Phosphatase 119 H, Total Bilirubin 0.9, Total Protein 7.3, Albumin 3.1 L Vital Signs Date Time Temp Pulse Resp B/P (MAP) Pulse Ox O2 Delivery O2 Flow Rate FiO2 03/06/17 12:02 Nasal Cannula 3.0 03/06/17 12:00 90 131/67 (88) 89 117/74 (88) 92 123/56 (78) 03/06/17 12:00 98.5 18 96 I&O- Last 24 Hours up to 6 AM 03/06/17 06:00 Intake Total 1580 ml Output Total 2325 ml Balance -745 ml ROB LEDESMA MD Mar 06, 2017 13:50
[2017-03-06 16:00] VITALS: BP 130/62
[2017-03-06 20:00] VITALS: BP_SYST 107; BP_SYST 113; BP_SYST 117; BP_DIAS 53; BP_DIAS 55; BP_DIAS 57
[2017-03-06] MEDS: DOCUSATE SODIUM 100 MG CAP PO SCH (20:24)
[2017-03-06] MEDS: WARFARIN SOD 3 MG TAB PO SCH (20:25)
[2017-03-06] MEDS: GABAPENTIN 300 MG CAP PO SCH (20:25)
[2017-03-06] MEDS: SIMVASTATIN 20 MG TAB PO SCH (20:28)
[2017-03-06] MEDS: VITAMIN D 1,000 INTERNATIONAL UNITS TABLET PO SCH (20:28)
[2017-03-07] VITALS: BP 101/57
[2017-03-07 04:00] VITALS: BP_SYST 103; BP_SYST 108; BP_SYST 127; BP_DIAS 60; BP_DIAS 68
[2017-03-07 05:30] LABS: MEAN CORPUSCULAR HEMOGLOBIN 26.9 pg (27.0-33.0); MEAN CORPUSCULAR HGB CONC 30.8 g/dl (32.0-36.5); MEAN CORPUSCULAR VOLUME 87.3 fl (80.0-96.0); WHITE BLOOD COUNT 7.9 K/mm3 (4.0-10.0)
[2017-03-07 05:37] LABS: INR 1.74
[2017-03-07 05:50] LABS: ALBUMIN/GLOBULIN RATIO 0.75 (1.00-1.93); ALKALINE PHOSPHATASE 131 U/L (45-117); ALT/SGPT 10 U/L (12-78); ANION GAP 4 MEQ/L (8-16); AST/SGOT 18 U/L (15-37); BILIRUBIN,TOTAL 0.9 MG/DL (0.2-1.0); BLOOD UREA NITROGEN 22 MG/DL (7-18); CALCIUM LEVEL 9.4 MG/DL (8.8-10.2); CARBON DIOXIDE LEVEL 41 MEQ/L (21-32); CHLORIDE LEVEL 96 MEQ/L (98-107); CREATININE FOR GFR 0.76 MG/DL (0.55-1.02); GLOMERULAR FILTRATION RATE > 60.0 (>32); GLUCOSE, FASTING 104 MG/DL (83-110); MAGNESIUM LEVEL 1.8 MG/DL (1.8-2.4); SODIUM LEVEL 141 MEQ/L (136-145)
[2017-03-07] MEDS: LEVOTHYROXINE 75MCG TABLET (0.075MG) PO SCH (06:21)
[2017-03-07] MEDS ORDERED: POTASSIUM CHLORIDE 10 MEQ SR TABLET PO ONE ×2 (08:00→12:00)
[2017-03-07 08:16] VITALS: BP 147/90
[2017-03-07] MEDS: DULoxetine 30 MG CAP (CYMBALTA) PO SCH (08:58)
[2017-03-07] MEDS: SPIRONOLACTONE 25 MG TAB PO SCH (08:58)
[2017-03-07] MEDS: PANTOPRAZOLE 40MG TAB (PROTONIX) PO SCH (08:58)
[2017-03-07] MEDS: FAMOTIDINE 20 MG TAB PO SCH (08:58)
[2017-03-07] MEDS: SINEMET 25-100 MG TAB PO SCH ×2 (08:58→20:54)
[2017-03-07] MEDS: FUROSEMIDE 40 MG/4 ML VIAL (J1940) IV SCH ×2 (08:58→17:08)
--- NOTE | 2017-03-07 09:06 | IPN ---
DATE: 03/07/2017 Mrs. Vargas appears approximately the same. She is comfortable at rest but gets really dizzy and lightheaded with ambulation. She apparently yesterday tried to walk with a physical therapy again and again had an almost near syncopal event. She was on telemetry, there was no arrhythmia during the time. But today I learned new information that I did not appreciate previously. She says that before she almost passes out, she is absolutely breathless and gasping for air. She does report that she has had dyspnea for years. Has been on nocturnal oxygen for at least 2 or 3 years and on continuous oxygen for several months. She apparently in the past, had pulmonary evaluation but she is not familiar with the results. She also remembers that Dr. Helms asked her to have evaluation for sleep apnea, which she refused VITAL SIGNS: Blood pressure 147/90, heart rate has been in 80s and 90s. She is afebrile. Saturation 93% on 3 liters. Fluid balance yesterday was about 1300 negative but weight is not appreciably changed at 70.4. Her jugular venous pulse still high. Lungs are relatively clear, though. Occasional crackle and wheezes noted. Heart Exam: Irregularly irregular rhythm. I do not appreciate any gallop. Abdomen is soft, nontender. There is no peripheral edema. Peripheral pulses are palpable bilaterally. Neurologically, besides weakness. She is intact. LABORATORY: Basic metabolic panel: Potassium is 3.0, BUN 22, creatinine 0.7, glucose 104, albumin is 3.0. CBC hemoglobin 10.4, hematocrit 33, platelet count 346,000 ASSESSMENT/PLAN: Mrs. Vargas is an 86-year-old female who has a remote history of bypass surgery who came to hospital because of several near syncopal events and one probably true syncopal event. I initially was suspicious that this represents orthostatic hypotension, but her orthostatic signs have been mostly negative. Today, I learned another piece of information that I missed previously and that is that the patient admits that before she loses consciousness, she is extremely short of breath. It could be that in the setting of severe pulmonary hypertension, she just has a limited cardiac output and is intolerant of exertion. As far as the etiology of pulmonary hypertension is concerned, she has several potential reasons. She has smoked at least 50 years at least a pack a day so she probably has some underlying COPD. She also was recommended to undergo evaluation for sleep apnea at least a couple years ago, she believes, which she refused. So that could be a player as well. Finally I do believe that there is some component of left-sided congestive heart failure even though her left ventricular systolic function is preserved. Her BNP was very high, which is atypical for right-sided heart failure. Consequently, I will attempt to accomplish more vigorous diuresis, even though I do not appreciate much signs of right-sided fluid retention. If she does not improve though I am afraid that my further options are rather limited. I discussed this with Dr. Rudd. CAREY
--- NOTE | 2017-03-07 11:50 | IPNPDOC ---
Text Note Date of Service The patient was seen on 03/07/17. NOTE Subjective: Patient is an 86 year old female with a PMHx of Atrial fibrillation ( on coumadin), Hypothyroidism, DLP, Possible Parkinson's disease / RLS, ?CHF, and GERD who presented to the ER with complains of shortness of breath and increasing weight of 10 lbs in 5 days. On arrival to the ER, patient was found to have crackles on lung auscultation and JVD consistent with CHF exacerbation, as well as an elevated BNP of 1500s Patient was seen and examined at the bedside. She notes that her breathing is the same as yesterday. She did have an episode where she had a near syncopal event yesterday and was very SOB prior to this. Currently she denies any problems. Objective: Vitals (See below) General: Lying in bed, no acute distress, comfortable, AAOx3 HEENT: NC, AT CVS: IrIr, +S1S2 Lungs: Fair air entry b/l, no significant crackles appreciates, no wheezing Abdomen: Soft, ND, NT Extremities: - Edema, - Calf tenderness Assessment and plan: Acute decompensated CHF - Presented with worsening shortness of breath - Physical reveals some signs of fluid overload - Elevated BNP - CXR 03/04: No acute cardiopulmonary process appreciated - ECHO 03/06: Preserved EF, Advanced DD, Severe pulmonary HTN - c/w Furosemide 40 IV BID - c/w Strict ins/outs, daily weights, head of bed elevation - Dr. Nobles (Cardiology) on consult; appreciate their input Severe Pulmonary HTN - possibly 2/2 THEODORE (undiagnosed) and COPD - ECHO 03/06: noted above - Will optimize volume status at this point EKG changes, possible ischemia - no complaints of chest pain - T-wave inversions in leads V1-V4 - Troponin x3 sets negative - Follows with Dr. Nobles Bradycardia - possibly 2/2 THEODORE - episodes of bradycardia at night with some symptoms (ie. Presyncope) - c/w telemetry monitoring - BB continued for atrial fibrillation, will continue to evaluate for bradycardia Orthostatic hypotension, possibly 2/2 autonomic dysfunction 2/2 Parkinson's disease, possibly 2/2 medications - Patient denies the history of Parkinson's, reports medications was started for RLS - c/w orthostatic vital sign checks - c/w Reduced dose of carbidopa / levodopa Atrial fibrillation - INR therapeutic, 1.74 - rate controlled with metoprolol - c/w Adjust dose of Coumadin for anticoagulation Hypothyroidism - c/w Levothyroxine GERD - c/w Protonix and Famotidine DLP - c/w Simvastatin Parkinson's disease - Patient notes that she does not have a history of Parkinson's - Levodopa / Carbidopa continued for possible RLS - c/w Adjust dose of Levodopa / Carbidopa Anxiety / Depression - c/w Duloxetine Peripheral neuropathy - c/w reduced dose of Gabapentin DVT prophylaxis - c/w Coumadin VS,Fishbone, I+O VS, Fishbone, I+O Laboratory Tests 03/07/17 05:18 Red Blood Count 3.88 L, Mean Corpuscular Volume 87.3, Mean Corpuscular Hemoglobin 26.9 L, Mean Corpuscular Hemoglobin Concent 30.8 L, Red Cell Distribution Width 16.0 H, Calcium Level 9.4, Aspartate Amino Transf (AST/SGOT) 18, Alanine Aminotransferase (ALT/SGPT) 10 L, Alkaline Phosphatase 131 H, Total Bilirubin 0.9, Total Protein 7.0, Albumin 3.0 L Vital Signs Date Time Temp Pulse Resp B/P (MAP) Pulse Ox O2 Delivery O2 Flow Rate FiO2 03/07/17 08:16 97.8 87 18 147/90 (109) 93 Nasal Cannula 3.0 I&O- Last 24 Hours up to 6 AM 03/07/17 06:00 Intake Total 1460 ml Output Total 2100 ml Balance -640 ml ROB LEDESMA MD Mar 07, 2017 11:50
[2017-03-07 12:00] VITALS: BP 136/64
[2017-03-07 16:00] VITALS: BP 132/74
[2017-03-07 20:00] VITALS: BP 133/68
[2017-03-07] MEDS: VITAMIN D 1,000 INTERNATIONAL UNITS TABLET PO SCH (20:54)
[2017-03-07] MEDS: GABAPENTIN 300 MG CAP PO SCH (20:54)
[2017-03-07] MEDS: WARFARIN SOD 3 MG TAB PO SCH (20:55)
[2017-03-07] MEDS: SIMVASTATIN 20 MG TAB PO SCH (20:55)
[2017-03-07] MEDS: DOCUSATE SODIUM 100 MG CAP PO SCH (20:55)
[2017-03-08] VITALS (7 sets, daily range): BP systolic 122–142; BP diastolic 62–87
[2017-03-08 05:32] LABS: MEAN CORPUSCULAR HEMOGLOBIN 26.6 pg (27.0-33.0); MEAN CORPUSCULAR HGB CONC 30.4 g/dl (32.0-36.5); MEAN CORPUSCULAR VOLUME 87.3 fl (80.0-96.0); RED CELL DISTRIBUTION WIDTH 15.9 % (11.5-14.5); WHITE BLOOD COUNT 8.3 K/mm3 (4.0-10.0)
[2017-03-08 05:35] LABS: INR 1.66
[2017-03-08] MEDS: LEVOTHYROXINE 75MCG TABLET (0.075MG) PO SCH (05:44)
[2017-03-08 05:48] LABS: ALBUMIN 3.2 GM/DL (3.2-5.2); ALBUMIN/GLOBULIN RATIO 0.71 (1.00-1.93); ALKALINE PHOSPHATASE 138 U/L (45-117); ALT/SGPT 14 U/L (12-78); ANION GAP 3 MEQ/L (8-16); AST/SGOT 23 U/L (15-37); BLOOD UREA NITROGEN 20 MG/DL (7-18); CALCIUM LEVEL 9.3 MG/DL (8.8-10.2); CARBON DIOXIDE LEVEL 39 MEQ/L (21-32); CHLORIDE LEVEL 97 MEQ/L (98-107); CREATININE FOR GFR 0.88 MG/DL (0.55-1.02); GLOMERULAR FILTRATION RATE > 60.0 (>32); GLUCOSE, FASTING 104 MG/DL (83-110); MAGNESIUM LEVEL 1.8 MG/DL (1.8-2.4); POTASSIUM SERUM 3.7 MEQ/L (3.5-5.1); SODIUM LEVEL 139 MEQ/L (136-145); TOTAL PROTEIN 7.7 GM/DL (6.4-8.2)
[2017-03-08] MEDS: PANTOPRAZOLE 40MG TAB (PROTONIX) PO SCH (08:32)
[2017-03-08] MEDS: FUROSEMIDE 40 MG/4 ML VIAL (J1940) IV SCH ×2 (08:32→17:28)
[2017-03-08] MEDS: SINEMET 25-100 MG TAB PO SCH ×2 (08:32→20:58)
[2017-03-08] MEDS: FAMOTIDINE 20 MG TAB PO SCH (08:32)
[2017-03-08] MEDS: DULoxetine 30 MG CAP (CYMBALTA) PO SCH (08:32)
[2017-03-08] MEDS: SPIRONOLACTONE 25 MG TAB PO SCH (08:33)
--- NOTE | 2017-03-08 09:42 | IPN ---
DATE: 03/08/2017 Mrs. Vargas tells me that her PT went better yesterday. She was able to ambulate several times around her room without major difficulty. She did not have any dizziness or near-syncopal sensations. She also feels that her breathing a little bit better. She was able to sleep without difficulty. Blood pressure 141/77, heart rate has been in 70s to 90s. She is afebrile. Saturation 96% on 3 liters of oxygen by nasal cannula. Fluid balance yesterday was about 900 mL negative after being about 1300 mL negative the day before. The weight has been documented at 69.5, which is 2 kg or more of weight loss since admission. Her JVP does not appear elevated to me. Lungs are clear with good air movement. Heart exam irregular rhythm. No gallop or rub is noted. There is a murmur likely due to TR. I do not appreciate loud P2. Abdomen is soft, nontender. There is no peripheral edema. Neurologically she appears intact. Certainly alert, oriented and appropriate. Moves freely all four extremities and there are no focal signs. Laboratory monsalve, basic metabolic panel potassium 3.7, BUN 20, creatinine 0.9, glucose 104, and albumin is 3.2. CBC hemoglobin 11.3, hematocrit 37, platelet count 396,000. ASSESSMENT/PLAN: Mrs. Vargas is an 86-year-old female who has a remote history of bypass surgery and who presented with four episodes of near syncope or syncope. Even though taking history it appears that some of these episodes were clearly due to falls, but at least one was a true syncopal event even though I initially thought that the presentation is orthostatic in nature, it became a little more obvious based on her history taken yesterday that before she passes out she is extremely dyspneic. Simultaneously, the echocardiogram revealed severe pulmonary hypertension. I suspect that she probably is losing consciousness when she reaches limit of her cardiac output. There is probably some component of left-sided heart failure to her pulmonary hypertension, if only because her BNP was quite high. Consequently, she is being diuresed so far with fairly good success. We are not overly aggressive, which I think it is preferable in this elderly woman. She was better yesterday and I hope that there will be additional improvement today. She would like to go home but I am still not comfortable. She lives alone and I am not certain that she actually can ambulate on her own. Hopefully though she will make additional progress today and she will be able to be discharged tomorrow. Otherwise, she has been anticoagulated. Her INR is mildly subtherapeutic. This is being taken care of by the hospitalist service. Her CBC is acceptable. She oxygenates reasonably well when she continues oxygen that she already has at home. She probably has some underlying COPD as she smoked for at least 50 years. I will contact primary care physician to try to get additional information. She previously refused evaluation for sleep apnea. CAREY
--- NOTE | 2017-03-08 12:55 | IPNPDOC ---
Text Note Date of Service The patient was seen on 03/08/17. NOTE Subjective: Patient is an 86 year old female with a PMHx of Atrial fibrillation ( on coumadin), Hypothyroidism, DLP, Possible Parkinson's disease / RLS, ?CHF, and GERD who presented to the ER with complains of shortness of breath and increasing weight of 10 lbs in 5 days. On arrival to the ER, patient was found to have crackles on lung auscultation and JVD consistent with CHF exacerbation, as well as an elevated BNP of 1500s Patient was seen and examined at the bedside. Her breathing continues to improve and she has been producing adaquate amount of urine given the diuretics she has received. I have advised her that we will continue to work with physical therapy until she is capable of safely being discharged home. Objective: Vitals (See below) General: Lying in bed, no acute distress, comfortable, AAOx3 HEENT: NC, AT CVS: IrIr, +S1S2 Lungs: Fair air entry b/l, no significant crackles appreciates, no wheezing Abdomen: Soft, ND, NT Extremities: - Edema, - Calf tenderness Assessment and plan: Dyspnea - likely 2/2 acute decompensated CHF, possibly severe pulmonary HTN - Presented with worsening shortness of breath - Physical reveals some signs of fluid overload - Elevated BNP; repeat BNP on 03/09 - CXR 03/04: No acute cardiopulmonary process appreciated - ECHO 03/06: Preserved EF, Advanced DD, Severe pulmonary HTN - c/w Furosemide 40 IV BID; has had negative fluid balance of -3200 cc since admissino - c/w Strict ins/outs, daily weights, head of bed elevation - Dr. Nobles (Cardiology) on consult; appreciate their input Severe Pulmonary HTN - possibly 2/2 THEODORE (undiagnosed) and COPD - ECHO 03/06: noted above - Will optimize volume status at this point EKG changes, possible ischemia - no complaints of chest pain - T-wave inversions in leads V1-V4 - Troponin x3 sets negative - Follows with Dr. Nobles Bradycardia - possibly 2/2 THEODORE - Episodes of bradycardia at night (03/05) with some symptoms (ie. Presyncope) - c/w telemetry monitoring - BB continued for atrial fibrillation - Will continue to evaluate arrhythmia Orthostatic hypotension, possibly 2/2 autonomic dysfunction 2/2 Parkinson's disease, possibly 2/2 medications - Patient denies the history of Parkinson's, reports medications was started for RLS - c/w orthostatic vital sign checks - c/w Reduced dose of carbidopa / levodopa Atrial fibrillation - INR therapeutic, 1.66 - rate controlled with metoprolol - c/w Adjust dose of Coumadin for anticoagulation; will give 5mg tonight Hypothyroidism - c/w Levothyroxine GERD - c/w Protonix and Famotidine DLP - c/w Simvastatin Parkinson's disease - Patient notes that she does not have a history of Parkinson's - Levodopa / Carbidopa continued for possible RLS - c/w Adjust dose of Levodopa / Carbidopa Anxiety / Depression - c/w Duloxetine Peripheral neuropathy - c/w reduced dose of Gabapentin DVT prophylaxis - c/w Coumadin Disposition: - c/w Physical therapy - c/w Diuresis - Awaiting improvement in INR toward therapeutic range VS,Juarez, I+O VS, Juarez, I+O Laboratory Tests 03/08/17 05:12 Red Blood Count 4.26, Mean Corpuscular Volume 87.3, Mean Corpuscular Hemoglobin 26.6 L, Mean Corpuscular Hemoglobin Concent 30.4 L, Red Cell Distribution Width 15.9 H, Calcium Level 9.3, Aspartate Amino Transf (AST/SGOT) 23, Alanine Aminotransferase (ALT/SGPT) 14, Alkaline Phosphatase 138 H, Total Bilirubin 1.0 , Total Protein 7.7, Albumin 3.2 Vital Signs Date Time Temp Pulse Resp B/P (MAP) Pulse Ox O2 Delivery O2 Flow Rate FiO2 03/08/17 12:24 Nasal Cannula 3.0 03/08/17 08:00 97.3 97 18 142/80 (100) 96 I&O- Last 24 Hours up to 6 AM 03/08/17 06:00 Intake Total 660 ml Output Total 1550 ml Balance -890 ml ROB LEDESMA MD Mar 08, 2017 12:55
[2017-03-08] MEDS ORDERED: WARFARIN SOD 5 MG TAB PO ONE (17:00)
[2017-03-08] MEDS ORDERED: MAGNESIUM OXIDE 400 MG TAB (MAG-OX) PO ONE (17:45)
[2017-03-08] MEDS: VITAMIN D 1,000 INTERNATIONAL UNITS TABLET PO SCH (20:58)
[2017-03-08] MEDS: SIMVASTATIN 20 MG TAB PO SCH (20:58)
[2017-03-08] MEDS: GABAPENTIN 300 MG CAP PO SCH (20:58)
[2017-03-08] MEDS: DOCUSATE SODIUM 100 MG CAP PO SCH (20:59)
[2017-03-09 05:25] LABS: MEAN CORPUSCULAR HEMOGLOBIN 26.9 pg (27.0-33.0); MEAN CORPUSCULAR HGB CONC 30.8 g/dl (32.0-36.5); MEAN CORPUSCULAR VOLUME 87.5 fl (80.0-96.0); RED CELL DISTRIBUTION WIDTH 16.2 % (11.5-14.5); WHITE BLOOD COUNT 8.8 K/mm3 (4.0-10.0)
[2017-03-09 05:33] LABS: INR 1.77
[2017-03-09 05:44] VITALS: BP 126/66
[2017-03-09 05:56] LABS: ALBUMIN 3.2 GM/DL (3.2-5.2); ALBUMIN/GLOBULIN RATIO 0.68 (1.00-1.93); ALKALINE PHOSPHATASE 140 U/L (45-117); ALT/SGPT 15 U/L (12-78); ANION GAP 8 MEQ/L (8-16); AST/SGOT 23 U/L (15-37); BILIRUBIN,TOTAL 0.9 MG/DL (0.2-1.0); BLOOD UREA NITROGEN 22 MG/DL (7-18); CALCIUM LEVEL 9.2 MG/DL (8.8-10.2); CARBON DIOXIDE LEVEL 37 MEQ/L (21-32); CHLORIDE LEVEL 95 MEQ/L (98-107); CREATININE FOR GFR 0.78 MG/DL (0.55-1.02); GLOMERULAR FILTRATION RATE > 60.0 (>32); GLUCOSE, FASTING 116 MG/DL (83-110); POTASSIUM SERUM 3.5 MEQ/L (3.5-5.1); SODIUM LEVEL 140 MEQ/L (136-145); TOTAL PROTEIN 7.9 GM/DL (6.4-8.2)
[2017-03-09] MEDS: LEVOTHYROXINE 75MCG TABLET (0.075MG) PO SCH (06:06)
[2017-03-09 08:00] VITALS: BP 96/55
[2017-03-09 08:15] VITALS: BP 112/66
[2017-03-09] MEDS: DULoxetine 30 MG CAP (CYMBALTA) PO SCH (08:25)
[2017-03-09] MEDS: SPIRONOLACTONE 25 MG TAB PO SCH (08:25)
[2017-03-09] MEDS: FUROSEMIDE 40 MG/4 ML VIAL (J1940) IV SCH (08:25)
[2017-03-09] MEDS: SINEMET 25-100 MG TAB PO SCH (08:25)
[2017-03-09] MEDS: PANTOPRAZOLE 40MG TAB (PROTONIX) PO SCH (08:25)
[2017-03-09] MEDS: FAMOTIDINE 20 MG TAB PO SCH (08:25)
[2017-03-09] MEDS ORDERED: CARB25TA PO (10:29)
[2017-03-09] MEDS ORDERED: GABA-282 PO (10:29)
[2017-03-09 10:33] VITALS: BP 104/62
--- NOTE | 2017-03-09 11:05 | IPN ---
DATE OF SERVICE: 03/09/2017 Mrs. Vargas tells me that she feels "wonderful." She would like to go home. She was able to ambulate much better, she is much less short of breath, and she has not had episodes of dizziness and near syncope in 3 days. Vital signs this morning: Blood pressure 104/62, heart rate has been mostly 90s. She is afebrile. Saturation 98% on 3 liters of oxygen by nasal cannula. Fluid balance yesterday was about 1500 negative. Documented weight is 68.5 kg, which is approximately 3 kg less since admission. She is alert and oriented and appropriate. Her jugular venous pressure (JVP) is not high. Lungs are clear. Heart examination reveals irregular rhythm. There is a faint murmur at the left sternal border about 1/6 intensity, likely representing TR. Abdomen is soft, nontender. No peripheral edema. Neurologically, she is intact. LABORATORY-[facility]: CBC: Hemoglobin 11.8, hematocrit 38.2. Basic metabolic panel: Potassium 3.5, BUN 22, creatinine 0.8, and glucose 116, BNP is 460, albumin is 3.2. INR was 1.8 ASSESSMENT AND PLAN: Mrs. Vargas is an 87-year-old female with remote history of bypass surgery but has preserved left ventricle (LV) systolic function. She has also chronic atrial fibrillation. She presented with several near-syncopal and syncopal episodes that I initially thought where orthostatic in nature. But we could never demonstrate orthostatic drop in blood pressures during her hospitalization. Upon further history, though, it appeared that she believes that before each loss of consciousness, she was extremely dyspneic, and because her echocardiogram revealed severe pulmonary hypertension, I suspect that this could be the actual mechanism. Her brain natriuretic peptide (BNP) was very high on admission, actually 1520; and consequently, I believe that there is definitely a component of left-sided heart failure. Today, it is down to 460, which is fairly dramatic decline; and hopefully, that will translate into the patient's feeling better, as well. In my opinion, she can be discharged home essentially on her current medications, which the difference that obviously the furosemide will be administered orally. I intend to see her in followup in the office within a few weeks. CAREY
[2017-03-09] MEDS ORDERED: COUM1TAB14 PO (15:17)
--- NOTE | 2017-03-09 20:21 | DSES ---
DATE OF ADMISSION: 03/04/2017 DATE OF DISCHARGE: 03/09/2017 PRIMARY CARE PHYSICIAN: Imelda Morelos REFERRING PHYSICIAN: None. CONSULTING PHYSICIAN: Dr. Nobles CONDITION ON DISCHARGE: Stable. FINAL DIAGNOSIS: Dyspnea, likely secondary to acute decompensated congestive heart failure, possibly secondary to severe pulmonary hypertension. PROCEDURES: None. HISTORY OF PRESENT ILLNESS: Patient is a 87-year-old female with a past medical history of atrial fibrillation, on Coumadin, hypothyroidism, dyslipidemia, possible Parkinson's disease, restless leg syndrome, and gastroesophageal reflux disease (GERD) who presented to the emergency room (ER) with complaints of shortness of breath and increased weight of 10 pounds in 5 days. On arrival to the emergency room (ER), patient was found to have crackles on lung auscultation and jugular venous distention (JVD) consistent with congestive heart failure (CHF) exacerbation as well as an elevated brain natriuretic peptide (BNP) in the 1500s. HOSPITAL COURSE: 1. Dyspnea, likely secondary to acute decompensated CHF, possibly severe pulmonary hypertension, presented with worsening shortness of breath. Physical revealed some signs of fluid overload. Elevated BNP on admission. Has decreased upon hospital discharge. Chest x-ray revealed no acute cardiopulmonary process. Echo on March 06 revealed preserved ejection fraction, advanced diastolic dysfunction, severe pulmonary hypertension. Patient was put on furosemide 40 mg intravenous (IV) twice a day. Has had a net negative fluid balance of greater than 4.3 liters while she remained in the hospital. Patient was continued with strict ins and outs, daily weights, and head of bed elevation. Dr. Nobles of cardiology has been on consult. We appreciate his input. Patient has been discharged home with her home dose of diuretic. Patient will be following up with her primary care provider and cardiology. 2. Severe pulmonary hypertension, possibly secondary to obstructive sleep apnea, undiagnosed, and chronic obstructive pulmonary disease (COPD). Echocardiogram on March 06 noted above. Will optimize volume status. 3. EKG changes, possible ischemia. No complaints of chest pain. T-wave inversions noted in leads V1-V4. Troponins times three have remained negative, however. Dr. Nobles has been on board. 4. Bradycardia, possibly secondary to obstructive sleep apnea. Episodes of bradycardia at night on March 05 with some symptoms of presyncope. Continue with telemetry monitoring. Beta blockers continue for atrial fibrillation. Will continue to evaluate for arrhythmia; however, has not recurred throughout hospital course. 5. Orthostatic hypotension. Has remained negative. 6. Atrial fibrillation. Patient's INR has begun to trend toward normal therapeutic range. Rate controlled with metoprolol. Continue with adjusted dose of Coumadin. 7. Hypothyroidism. Continue with levothyroxine. 8. Gastroesophageal reflux disease (GERD). Continue with Protonix and famotidine. 9. Dyslipidemia. Continue with simvastatin. 10. Parkinson's disease/possible restless leg syndrome. Continue with adjusted dose of levadopa/carbidopa. 11. Anxiety and depression. Continue with duloxetine. 12. Peripheral neuropathy. Continue with adjusted dose of gabapentin. 13. Deep vein thrombosis (DVT) prophylaxis. Patient has been on Coumadin. DISCHARGE MEDICATIONS: Patient is being discharged home with the following medication list: - acetaminophen 100 mg by mouth daily - vitamin D 5000 units by mouth at bedtime - docusate sodium 100 mg by mouth at bedtime - duloxetine 30 mg by mouth daily - esomeprazole 40 mg by mouth daily - famotidine 20 mg by mouth daily - furosemide 40 mg by mouth daily - levothyroxine 75 mcg by mouth daily - metoprolol succinate 25 mg by mouth at bedtime - simvastatin 20 mg by mouth at bedtime - Tylenol PM two tablet by mouth at bedtime - warfarin 4 mg by mouth at bedtime CONTINUED MEDICATIONS: - carbidopa/levadopa to one tablet by mouth twice a day - gabapentin 300 mg by mouth at bedtime STOPPED MEDICATIONS: Diphenhydramine 25 mg by mouth at bedtime DISCHARGE INSTRUCTIONS: Patient has been advised to followup with primary care provider as well as cardiology within the next 7 days. She has been advised to remain compliant with treatment plan and medications and return to the emergency room if she experiences any problems. TIME SPENT ON DISCHARGE: Greater than 35 minutes.
== END 2017-03-09 13:35 | disposition home health service (06) | DRG 293 ==
LOC: M ED 14:36 → M ED INP 18:33 → M PCU 21:27
PROVIDERS: ADMIT Internal Medicine; ATTEND Internal Medicine
DX: I11.0 Hypertensive heart disease with heart failure (principal); I50.33 Acute on chronic diastolic (congestive) heart failure; I27.2 Other secondary pulmonary hypertension; I48.2 Chronic atrial fibrillation; E03.9 Hypothyroidism, unspecified; K21.9 Gastro-esophageal reflux disease without esophagitis; J44.9 Chronic obstructive pulmonary disease, unspecified; G62.9 Polyneuropathy, unspecified; F32.9 Major depressive disorder, single episode, unspecified; F41.9 Anxiety disorder, unspecified; R00.1 Bradycardia, unspecified; G25.81 Restless legs syndrome; G47.33 Obstructive sleep apnea (adult) (pediatric); E78.5 Hyperlipidemia, unspecified; I95.1 Orthostatic hypotension; G20 Parkinson's disease; Z79.01 Long term (current) use of anticoagulants; Z79.899 Other long term (current) drug therapy; Z88.6 Allergy status to analgesic agent; Z96.643 Presence of artificial hip joint, bilateral; Z87.891 Personal history of nicotine dependence; Z95.1 Presence of aortocoronary bypass graft

== ENCOUNTER → 2017-03-25 | Outpatient (REF) | payer MEDICARE ==
[~2017-03-25] MED LIST changes: +BENA25CA4 PO; +CARB25TA PO; +COUM1TAB14 PO; +DULO1CAP2 PO; +FAMO1TAB11 PO; +FURO40TA2 PO; +GABA-282; +GABA-282 PO; +LEVO75TA34 PO; +METO1TAB32 PO; +NEXI20CA PO; +SIMV20TA2 PO; +STOO100C PO; +TYLE1TAB5 PO; +TYLE500T78 PO; +VITA500046 PO; +WARF4TAB51 PO
[2017-03-25 10:48] LABS: MEAN CORPUSCULAR HEMOGLOBIN 26.1 pg (27.0-33.0); MEAN CORPUSCULAR HGB CONC 29.5 g/dl (32.0-36.5); MEAN CORPUSCULAR VOLUME 88.6 fl (80.0-96.0); RED CELL DISTRIBUTION WIDTH 17.3 % (11.5-14.5); WHITE BLOOD COUNT 8.5 10^3/uL (4.0-10.0)
== END ==
LOC: M LAB REF 10:26
PROVIDERS: ATTEND Internal Medicine
DX: Z79.01 Long term (current) use of anticoagulants (principal); I48.0 Paroxysmal atrial fibrillation; N18.3 Chronic kidney disease, stage 3 (moderate)

== ENCOUNTER → 2017-04-17 | Outpatient (REF) | payer MEDICARE ==
[2017-04-18 14:10] LABS: FOLATE 14.4 NG/ML; PERCENT SATURATION 5.6 % (13.2-45.0)
== END ==
LOC: M LAB REF 12:46
PROVIDERS: ATTEND Internal Medicine
DX: D64.9 Anemia, unspecified (principal)

== ENCOUNTER 2017-07-09 17:38 | Inpatient (IN) | payer MEDICARE ==
[2017-07-09 18:55] LABS: VENOUS BASE EXCESS 3.5 (-2.0-2.0); VENOUS HCO3 29.7 MEQ/L (23.0-27.0); VENOUS O2 SATURATION 72.7 % (60.0-80.0); VENOUS PARTIAL PRESSURE CO2 52.9 mmHg (38.0-50.0); VENOUS PARTIAL PRESSURE O2 41.1 mmHg (30.0-50.0); VENOUS PH 7.367 UNITS (7.330-7.430); VENOUS STANDARD HCO3 27.1 MEQ/L; VENOUS TOTAL CO2 31.3 MEQ/L (24.0-28.0)
[2017-07-09 19:14] LABS: INR 2.51; PROTHROMBIN TIME 28.1 SECONDS (12.4-14.5)
[2017-07-09 19:18] LABS: BASO # 0.1 10^3/uL (0.0-0.2); BASO % 0.5 % (0.0-1.0); EOS # 0.2 10^3/uL (0.0-0.50); EOS % 1.9 % (0.0-3.0); HEMATOCRIT 33.7 % (36.0-47.0); HEMOGLOBIN 10.2 g/dl (12.0-16.0); IMMATURE GRANULOCYTE % 0.4 % (0-0); LYMPH % 9.4 % (24.0-44.0); MEAN CORPUSCULAR HEMOGLOBIN 27.2 pg (27.0-33.0); MEAN CORPUSCULAR HGB CONC 30.3 g/dl (32.0-36.5); MEAN CORPUSCULAR VOLUME 89.9 fl (80.0-96.0); MONO # 1.1 10^3/uL (0.0-0.8); MONO % 10.7 % (0.0-5.0); NEUTROPHILS # 7.8 10^3/uL (1.8-7.7); NEUTROPHILS % 77.1 % (36.0-66.0); PLATELET COUNT, AUTOMATED 299 10^3/uL (150-450); RED BLOOD COUNT 3.75 10^6/uL (4.00-5.40); RED CELL DISTRIBUTION WIDTH 17.2 % (11.5-14.5); WHITE BLOOD COUNT 10.1 10^3/uL (4.0-10.0)
[2017-07-09 19:25] LABS: NT-PRO BNP 4358 PG/ML (<450)
[2017-07-09 19:30] LABS: ALBUMIN 3.7 GM/DL (3.2-5.2); ALBUMIN/GLOBULIN RATIO 0.97 (1.00-1.93); ALKALINE PHOSPHATASE 114 U/L (45-117); ALT/SGPT 6 U/L (12-78); ANION GAP 7 MEQ/L (8-16); AST/SGOT 16 U/L (7-37); BILIRUBIN,DIRECT 0.3 MG/DL (0.0-0.2); BILIRUBIN,TOTAL 0.7 MG/DL (0.2-1.0); BLOOD UREA NITROGEN 19 MG/DL (7-18); CALCIUM LEVEL 8.9 MG/DL (8.8-10.2); CARBON DIOXIDE LEVEL 33 MEQ/L (21-32); CHLORIDE LEVEL 101 MEQ/L (98-107); CPK CREATINE PHOSPHOKINASE 76 U/L (26-192); CREATININE FOR GFR 1.08 MG/DL (0.55-1.02); GLOMERULAR FILTRATION RATE 51.1 (>32); GLUCOSE, FASTING 89 MG/DL (83-110); POTASSIUM SERUM 3.8 MEQ/L (3.5-5.1); SODIUM LEVEL 141 MEQ/L (136-145); TOTAL PROTEIN 7.5 GM/DL (6.4-8.2); TROPONIN I 0.21 NG/ML (< 0.10)
[2017-07-09 19:35] LABS: CK-MB VALUE MASS 2.6 NG/ML (0.0-3.6); MB/CK RELATIVE INDEX 3.42 (< OR =4)
[2017-07-09 20:10] LABS: APPEARANCE, URINE CLOUDY (CLEAR); BACTERIA, URINE AUTO 2+ (NEGATIVE); BILIRUBIN, URINE AUTO NEGATIVE (NEGATIVE); BLOOD, URINE BLOOD NEGATIVE (NEGATIVE); COLOR, URINE AMBER (YELLOW); GLUCOSE, URINE (UA) AUTO NEGATIVE (NEGATIVE); KETONE, URINE AUTO TRACE mg/dL (NEGATIVE); LEUKOCYTE ESTERASE, URINE AUTO 3+ (NEGATIVE); MUCUS, URINE SMALL (NEGATIVE); NITRITE, URINE AUTO NEGATIVE (NEGATIVE); PROTEIN, URINE AUTO NEGATIVE (NEGATIVE); RBC, URINE AUTO 4 /HPF (0-3); SPECIFIC GRAVITY URINE AUTO 1.023 (1.002-1.035); SQUAMOUS EPITHELIAL CELL UR AU 0 /HPF (0-6); WBC, URINE AUTO 40 /HPF (0-3)
[2017-07-09 20:40] LABS: ABG BASE EXCESS -2.6 (-2.0-2.0); ABG HCO3 21.3 MEQ/L (22.0-26.0); ABG O2 SATURATION 86.3 % (95.0-99.0); ABG PARTIAL PRESSURE CO2 33.9 mmHg (35.0-45.0); ABG PARTIAL PRESSURE O2 59.6 mmHg (75.0-100.0); ABG STANDARD HCO3 22.1 MEQ/L (22.0-26.0); ABG TOTAL CO2 22.4 MEQ/L (23.0-31.0); ABG pH (ARTERIAL) 7.417 UNITS (7.350-7.450)
[2017-07-09] MEDS: NORCO, ANEXSIA 5/325MG TABLET (HYDROcodone/ACETAMINOPHEN) PO (21:38)
[2017-07-09 22:39] LABS: CK-MB VALUE MASS 4.5 NG/ML (0.0-3.6); CPK CREATINE PHOSPHOKINASE 91 U/L (26-192); MB/CK RELATIVE INDEX 4.94 (< OR =4); TROPONIN I 0.81 NG/ML (< 0.10)
[2017-07-10] MEDS: WARFARIN SOD 2 MG TAB PO ×2 (02:58→21:00)
[2017-07-10] MEDS: GABAPENTIN 300 MG CAP PO ×2 (02:58→20:59)
[2017-07-10] MEDS: SIMVASTATIN 20 MG TAB PO ×2 (02:59→21:00)
[2017-07-10] MEDS: ASCORBIC ACID 500 MG TAB PO ×2 (02:59→20:59)
[2017-07-10] MEDS: FUROSEMIDE 40 MG/4 ML VIAL (J1940) IV ×2 (03:22→17:42)
[2017-07-10] MEDS: VITAMIN D 1,000 INTERNATIONAL UNITS TABLET PO ×2 (03:22→21:00)
[2017-07-10] MEDS: LEVOTHYROXINE 75MCG TABLET (0.075MG) PO (05:22)
[2017-07-10] MEDS: ACETAMINOPHEN TAB 650MG DOSE (2X325MG) PO ×3 (05:26→15:44)
[2017-07-10] MEDS: MORPHINE 2 MG/ML 1ML SYRINGE IV ×3 (06:07→19:41)
[2017-07-10] MEDS: SINEMET 25-100 MG TAB PO ×3 (06:09→21:00)
[2017-07-10 07:25] LABS: HEMOGLOBIN 9.7 g/dl (12.0-16.0); MEAN CORPUSCULAR HEMOGLOBIN 27.1 pg (27.0-33.0); MEAN CORPUSCULAR HGB CONC 30.3 g/dl (32.0-36.5); MEAN CORPUSCULAR VOLUME 89.4 fl (80.0-96.0); PLATELET COUNT, AUTOMATED 298 10^3/uL (150-450); RED BLOOD COUNT 3.58 10^6/uL (4.00-5.40); WHITE BLOOD COUNT 10.4 10^3/uL (4.0-10.0)
[2017-07-10 07:38] LABS: INR 2.49; PROTHROMBIN TIME 27.9 SECONDS (12.4-14.5)
[2017-07-10 07:59] LABS: ANION GAP 6 MEQ/L (8-16); BLOOD UREA NITROGEN 17 MG/DL (7-18); CALCIUM LEVEL 9.2 MG/DL (8.8-10.2); CARBON DIOXIDE LEVEL 33 MEQ/L (21-32); CHLORIDE LEVEL 99 MEQ/L (98-107); CK-MB VALUE MASS 3.8 NG/ML (0.0-3.6); CPK CREATINE PHOSPHOKINASE 87 U/L (26-192); CREATININE FOR GFR 0.81 MG/DL (0.55-1.02); GLOMERULAR FILTRATION RATE > 60.0 (>32); GLUCOSE, FASTING 95 MG/DL (83-110); MB/CK RELATIVE INDEX 4.36 (< OR =4); POTASSIUM SERUM 3.3 MEQ/L (3.5-5.1); SODIUM LEVEL 138 MEQ/L (136-145); TROPONIN I 0.93 NG/ML (< 0.10)
[2017-07-10] MEDS: DOCUSATE SODIUM 100 MG CAP PO ×2 (08:28→21:00)
[2017-07-10] MEDS: PANTOPRAZOLE 40MG TAB (PROTONIX) PO (08:28)
[2017-07-10] MEDS: FUROSEMIDE 40 MG TAB PO (08:28)
[2017-07-10] MEDS: DULoxetine 30 MG CAP (CYMBALTA) PO (08:28)
[2017-07-10] MEDS: FAMOTIDINE 20 MG TAB PO (08:29)
[2017-07-10] MEDS: POTASSIUM CHLORIDE 10 MEQ SR TABLET PO (08:29)
[2017-07-10] MEDS ORDERED: ACETAMINOPHEN TAB 650MG DOSE (2X325MG) As Ordered (10:24)
[2017-07-10 15:31] LABS: CPK CREATINE PHOSPHOKINASE 89 U/L (26-192); TROPONIN I 0.65 NG/ML (< 0.10)
[2017-07-10 15:32] LABS: CK-MB VALUE MASS 2.9 NG/ML (0.0-3.6); MB/CK RELATIVE INDEX 3.25 (< OR =4)
[2017-07-10] MEDS: ONDANSETRON 4MG/2ML VIAL (J2405) IV (19:40)
[2017-07-10 23:26] LABS: CK-MB VALUE MASS 2.2 NG/ML (0.0-3.6); CPK CREATINE PHOSPHOKINASE 90 U/L (26-192); MB/CK RELATIVE INDEX 2.44 (< OR =4); TROPONIN I 0.37 NG/ML (< 0.10)
[2017-07-11] MEDS ORDERED: SLF 3 ML SYR IV (00:30)
[2017-07-11] MEDS: PERCOCET 5MG/325MG TAB PO ×4 (01:57→22:45)
[2017-07-11] MEDS: LEVOTHYROXINE 75MCG TABLET (0.075MG) PO (05:26)
[2017-07-11] MEDS: SLF 3 ML SYR IV ×3 (05:26→21:34)
[2017-07-11 05:51] LABS: HEMATOCRIT 32.4 % (36.0-47.0); HEMOGLOBIN 9.6 g/dl (12.0-16.0); MEAN CORPUSCULAR HEMOGLOBIN 27.1 pg (27.0-33.0); MEAN CORPUSCULAR HGB CONC 29.6 g/dl (32.0-36.5); MEAN CORPUSCULAR VOLUME 91.5 fl (80.0-96.0); PLATELET COUNT, AUTOMATED 294 10^3/uL (150-450); RED BLOOD COUNT 3.54 10^6/uL (4.00-5.40); RED CELL DISTRIBUTION WIDTH 17.1 % (11.5-14.5); WHITE BLOOD COUNT 8.9 10^3/uL (4.0-10.0)
[2017-07-11 06:13] LABS: ANION GAP 4 MEQ/L (8-16); BLOOD UREA NITROGEN 19 MG/DL (7-18); CALCIUM LEVEL 9.5 MG/DL (8.8-10.2); CARBON DIOXIDE LEVEL 36 MEQ/L (21-32); CHLORIDE LEVEL 99 MEQ/L (98-107); GLOMERULAR FILTRATION RATE > 60.0 (>32); GLUCOSE, FASTING 103 MG/DL (83-110); POTASSIUM SERUM 4.1 MEQ/L (3.5-5.1); SODIUM LEVEL 139 MEQ/L (136-145)
[2017-07-11] MEDS: PANTOPRAZOLE 40MG TAB (PROTONIX) PO (10:38)
[2017-07-11] MEDS: SINEMET 25-100 MG TAB PO ×3 (10:38→21:33)
[2017-07-11] MEDS: DULoxetine 30 MG CAP (CYMBALTA) PO (10:38)
[2017-07-11] MEDS: DOCUSATE SODIUM 100 MG CAP PO ×2 (10:38→21:33)
[2017-07-11] MEDS: FAMOTIDINE 20 MG TAB PO (10:38)
[2017-07-11] MEDS: ONDANSETRON 4MG/2ML VIAL (J2405) IV (12:20)
[2017-07-11] MEDS: FUROSEMIDE 40 MG/4 ML VIAL (J1940) IV (16:22)
[2017-07-11] MEDS: GABAPENTIN 300 MG CAP PO (21:33)
[2017-07-11] MEDS: ASCORBIC ACID 500 MG TAB PO (21:33)
[2017-07-11] MEDS: VITAMIN D 1,000 INTERNATIONAL UNITS TABLET PO (21:33)
[2017-07-11] MEDS: SIMVASTATIN 20 MG TAB PO (21:33)
[2017-07-11] MEDS: WARFARIN SOD 2 MG TAB PO (21:34)
[2017-07-12] MEDS: LEVOTHYROXINE 75MCG TABLET (0.075MG) PO (05:42)
[2017-07-12] MEDS: PERCOCET 5MG/325MG TAB PO ×2 (05:42→12:46)
[2017-07-12] MEDS: SLF 3 ML SYR IV ×3 (05:43→21:46)
[2017-07-12 06:00] LABS: HEMATOCRIT 31.2 % (36.0-47.0); HEMOGLOBIN 9.5 g/dl (12.0-16.0); MEAN CORPUSCULAR HEMOGLOBIN 27.7 pg (27.0-33.0); MEAN CORPUSCULAR HGB CONC 30.4 g/dl (32.0-36.5); PLATELET COUNT, AUTOMATED 279 10^3/uL (150-450); RED BLOOD COUNT 3.43 10^6/uL (4.00-5.40); WHITE BLOOD COUNT 9.4 10^3/uL (4.0-10.0)
[2017-07-12 06:15] LABS: INR 2.38
[2017-07-12 06:31] LABS: ANION GAP 7 MEQ/L (8-16); BLOOD UREA NITROGEN 20 MG/DL (7-18); CALCIUM LEVEL 9.5 MG/DL (8.8-10.2); CARBON DIOXIDE LEVEL 35 MEQ/L (21-32); CHLORIDE LEVEL 95 MEQ/L (98-107); CREATININE FOR GFR 0.83 MG/DL (0.55-1.02); GLOMERULAR FILTRATION RATE > 60.0 (>32); GLUCOSE, FASTING 84 MG/DL (83-110); POTASSIUM SERUM 3.9 MEQ/L (3.5-5.1); SODIUM LEVEL 137 MEQ/L (136-145)
[2017-07-12] MEDS: DULoxetine 30 MG CAP (CYMBALTA) PO (09:32)
[2017-07-12] MEDS: SINEMET 25-100 MG TAB PO ×3 (09:32→21:45)
[2017-07-12] MEDS: FAMOTIDINE 20 MG TAB PO (09:32)
[2017-07-12] MEDS: DOCUSATE SODIUM 100 MG CAP PO ×2 (09:32→21:45)
[2017-07-12] MEDS: ESOMEPRAZOLE 20 MG PO (09:33)
[2017-07-12] MEDS: LIDOCAINE 5% (LIDODERM) PATCH TD (09:33)
[2017-07-12] MEDS ORDERED: LORazepam 1 MG TAB PO (10:30)
[2017-07-12] MEDS ORDERED: SCOPOLAMINE 1MG TRANSDERMAL PATCH TOP (10:30)
[2017-07-12] MEDS ORDERED: MORPHINE 10MG/0.5ML ORAL CONCENTRATE SOLUTION U/D SL (10:30)
[2017-07-12] MEDS: **NOTE PATIENT COMMENT** MISC XX (21:00)
[2017-07-12] MEDS: GABAPENTIN 300 MG CAP PO (21:45)
[2017-07-13] MEDS: SLF 3 ML SYR IV ×3 (06:00→20:05)
[2017-07-13] MEDS: DOCUSATE SODIUM 100 MG CAP PO ×2 (08:43→20:05)
[2017-07-13] MEDS: DULoxetine 30 MG CAP (CYMBALTA) PO (08:43)
[2017-07-13] MEDS: ESOMEPRAZOLE 20 MG PO (08:44)
[2017-07-13] MEDS: SINEMET 25-100 MG TAB PO ×3 (08:44→20:05)
[2017-07-13] MEDS: PERCOCET 5MG/325MG TAB PO ×2 (08:44→20:06)
[2017-07-13] MEDS: FAMOTIDINE 20 MG TAB PO (08:44)
[2017-07-13] MEDS: LIDOCAINE 5% (LIDODERM) PATCH TD (08:45)
[2017-07-13] MEDS: GABAPENTIN 300 MG CAP PO (20:05)
[2017-07-13] MEDS: **NOTE PATIENT COMMENT** MISC XX (20:07)
[2017-07-14] MEDS: SLF 3 ML SYR IV ×3 (05:48→20:05)
[2017-07-14] MEDS: FAMOTIDINE 20 MG TAB PO (08:08)
[2017-07-14] MEDS: ESOMEPRAZOLE 20 MG PO (08:08)
[2017-07-14] MEDS: LIDOCAINE 5% (LIDODERM) PATCH TD (08:08)
[2017-07-14] MEDS: DULoxetine 30 MG CAP (CYMBALTA) PO (08:08)
[2017-07-14] MEDS: SINEMET 25-100 MG TAB PO ×3 (08:08→20:04)
[2017-07-14] MEDS: DOCUSATE SODIUM 100 MG CAP PO ×2 (08:08→20:04)
[2017-07-14] MEDS: **NOTE PATIENT COMMENT** MISC XX (20:04)
[2017-07-14] MEDS: GABAPENTIN 300 MG CAP PO (20:04)
[2017-07-15] MEDS: SLF 3 ML SYR IV (06:13)
[2017-07-15] MEDS: LIDOCAINE 5% (LIDODERM) PATCH TD (08:38)
[2017-07-15] MEDS: DOCUSATE SODIUM 100 MG CAP PO ×2 (08:38→20:06)
[2017-07-15] MEDS: SINEMET 25-100 MG TAB PO ×3 (08:38→20:06)
[2017-07-15] MEDS: DULoxetine 30 MG CAP (CYMBALTA) PO (08:39)
[2017-07-15] MEDS: FAMOTIDINE 20 MG TAB PO (08:39)
[2017-07-15] MEDS: ESOMEPRAZOLE 20 MG PO (09:00)
[2017-07-15] MEDS: **NOTE PATIENT COMMENT** MISC XX (20:06)
[2017-07-15] MEDS: GABAPENTIN 300 MG CAP PO (20:06)
[2017-07-16] MEDS: ESOMEPRAZOLE 20 MG PO (09:00)
[2017-07-16] MEDS: DOCUSATE SODIUM 100 MG CAP PO ×2 (09:07→20:00)
[2017-07-16] MEDS: FAMOTIDINE 20 MG TAB PO (09:07)
[2017-07-16] MEDS: SINEMET 25-100 MG TAB PO ×3 (09:07→20:00)
[2017-07-16] MEDS: DULoxetine 30 MG CAP (CYMBALTA) PO (09:07)
[2017-07-16] MEDS: LIDOCAINE 5% (LIDODERM) PATCH TD (09:07)
[2017-07-16] MEDS: ACETAMINOPHEN TAB 650MG DOSE (2X325MG) PO (19:59)
[2017-07-16] MEDS: GABAPENTIN 300 MG CAP PO (20:00)
[2017-07-16] MEDS: **NOTE PATIENT COMMENT** MISC XX (20:00)
[2017-07-17] MEDS: ESOMEPRAZOLE 20 MG PO (09:00)
[2017-07-17] MEDS: LIDOCAINE 5% (LIDODERM) PATCH TD (09:01)
[2017-07-17] MEDS: SINEMET 25-100 MG TAB PO (09:01)
[2017-07-17] MEDS: DOCUSATE SODIUM 100 MG CAP PO (09:01)
[2017-07-17] MEDS: FAMOTIDINE 20 MG TAB PO (09:02)
[2017-07-17] MEDS: DULoxetine 30 MG CAP (CYMBALTA) PO (09:02)
== END 2017-07-17 15:19 | disposition home health service (06) | DRG 604 ==
LOC: M MSPAV 07-12 14:58 → M PCU 07-10 23:33 → M ED 17:38 → M ED INP 23:26
DX: S20.20XA Contusion of thorax, unspecified, initial encounter (principal); I50.33 Acute on chronic diastolic (congestive) heart failure; I48.2 Chronic atrial fibrillation; E03.9 Hypothyroidism, unspecified; K21.9 Gastro-esophageal reflux disease without esophagitis; E78.5 Hyperlipidemia, unspecified; G20 Parkinson's disease; R07.89 Other chest pain; G62.9 Polyneuropathy, unspecified; R06.03 Acute respiratory distress; G25.81 Restless legs syndrome; Z51.5 Encounter for palliative care; Z66 Do not resuscitate; I27.20 Pulmonary hypertension, unspecified; Z87.891 Personal history of nicotine dependence; Z96.643 Presence of artificial hip joint, bilateral; Z95.1 Presence of aortocoronary bypass graft; Z79.899 Other long term (current) drug therapy; Z88.6 Allergy status to analgesic agent; Z79.01 Long term (current) use of anticoagulants; W18.09XA Striking against other object with subsequent fall, initial encounter; Y92.009 Unspecified place in unspecified non-institutional (private) residence as the place of occurrence of the external cause